=== PATIENT | female | born 1975 | race American Indian/Alaskan Native ===

== ENCOUNTER 2017-11-22 20:50 | Emergency (ER) | payer MEDICAID ==
[2017-11-22 21:28] VITALS: BP 103/63
--- NOTE | 2017-11-22 23:47 | XRay Report ---
FINAL REPORT EXAM: XR SHOULDER 2+V RT HISTORY: shoulder injury TECHNIQUE: Three views right shoulder PRIORS: None. FINDINGS: No fractures are identified. No dislocation seen. The acromioclavicular joint is intact. Adjacent bony and soft tissue structures are unremarkable. IMPRESSION: Negative shoulder series
[2017-11-23] MEDS ORDERED: TORADOL IM ONE (04:11)
--- NOTE | 2017-11-23 04:22 | Emergency Department Report ---
ED Upper Extremity Inj HPI - General Chief Complaint: Extremity Injury, Upper Stated Complaint: SHOULDER PAIN Time Seen by Provider: 11/23/17 03:21 Source: patient Mode of arrival: Ambulatory Limitations: No Limitations - History of Present Illness Initial Comments: This is a 41-year-old female nontoxic, well nourished in appearance, no acute signs of distress presents to the ED with c/o of right shoulder pain 1 month. Patient states pain has been increasing worse and worse. Patient states she is currently working at [employer] and has been picking up heavy boxes. She denies any trauma to the region. Denies any numbness, tingling, fever, chills, nausea, vomiting, joint swelling, joint redness, chest pain, shortness of breath , headache, stiff neck, back pain. Patient denies any drug allergies or past medical history. Patient states she had a hysterectomy. MD Complaint: Injury to:: right, shoulder -: month(s) (1) Other Extremity Injury: Shoulder: Right Other Injuries: none Place: work Severity scale (0 -10): 8 Improves With: none Worsens With: none Associated Symptoms: denies other symptoms. denies: weakness, numbness, neck pain, suspects foreign body, nausea/vomiting - Related Data Home Medications Medication Instructions Recorded Confirmed Last Taken Acetaminophen [Tylenol] 500 mg PO PRN 02/23/14 02/23/14 02/23/14 Cyroheptadine 4 mg PO BID 02/24/14 02/24/14 01/27/16 Previous Rx's Medication Instructions Recorded Last Taken Type Acetaminophen/Codeine 1 tab PO Q6H PRN #15 tab 10/23/14 Unknown Rx [Acetaminophen-Codeine #3 TAB] Diclofenac [Brandon Wilcox] 75 mg PO TID #21 tablet 10/23/14 01/27/16 Rx Acetaminophen/Codeine [Tylenol #3] 1 tab PO Q6H PRN #20 tab 01/29/16 Unknown Rx Cyclobenzaprine HCl [Flexeril 5 MG 5 mg PO TID #21 tab 01/29/16 Unknown Rx TAB] Ibuprofen [Motrin 800 MG tab] 1 tab PO Q8HR PRN #30 tablet 01/29/16 Unknown Rx ALBUTEROL Inhaler [ProAir HFA 1 puff IH Q4HR PRN #1 inha 11/09/16 Unknown Rx Inhaler] Diphenhydramine HCl [Benadryl 25 mg PO Q6HR #10 tablet 11/09/16 Unknown Rx Allergy TAB] Prednisone [predniSONE 10 mg 10 mg PO .TAPER #1 tab.ds.pk 11/09/16 Unknown Rx (6-Day Pack, 21 Tabs)] Ranitidine HCl [Zantac 150 MG TAB] 150 mg PO BID #10 tablet 11/09/16 Unknown Rx Cyclobenzaprine [Flexeril] 10 mg PO QHS PRN #7 tablet 11/23/17 Unknown Rx Ibuprofen [Motrin] 600 mg PO Q8H PRN #30 tablet 11/23/17 Unknown Rx Allergies Allergy/AdvReac Type Severity Reaction Status Date / Time No Known Allergies Allergy Verified 10/23/14 16:33 ED Review of Systems ROS: Stated complaint: SHOULDER PAIN Other details as noted in HPI Constitutional: denies: chills, fever Eyes: denies: eye pain, eye discharge, vision change ENT: denies: ear pain, throat pain Respiratory: denies: cough, shortness of breath, wheezing Cardiovascular: denies: chest pain, palpitations Endocrine: no symptoms reported Gastrointestinal: denies: abdominal pain, nausea, diarrhea Genitourinary: denies: urgency, dysuria, discharge Musculoskeletal: arthralgia. denies: back pain, joint swelling Skin: denies: rash, lesions Neurological: denies: headache, weakness, paresthesias Psychiatric: denies: anxiety, depression Hematological/Lymphatic: denies: easy bleeding, easy bruising ED Past Medical Hx - Past Medical History Hx Headaches / Migraines: Yes (1994) Additional medical history: cartilage damage to right knee, ligament damage to right ankle. - Surgical History Additional Surgical History: Hysterectomy, x 2. Jaw surgery. Lumps removed from chest twice. - Social History Smoking Status: Never Smoker Substance Use Type: None - Medications Home Medications: Home Medications Medication Instructions Recorded Confirmed Last Taken Type Acetaminophen [Tylenol] 500 mg PO PRN 02/23/14 02/23/14 02/23/14 History Cyroheptadine 4 mg PO BID 02/24/14 02/24/14 01/27/16 History Acetaminophen/Codeine 1 tab PO Q6H PRN #15 tab 10/23/14 Unknown Rx [Acetaminophen-Codeine #3 TAB] Diclofenac Dr [Voltaren Dr] 75 mg PO TID #21 tablet 10/23/14 01/27/16 Rx Acetaminophen/Codeine [Tylenol #3] 1 tab PO Q6H PRN #20 tab 01/29/16 Unknown Rx Cyclobenzaprine HCl [Flexeril 5 MG 5 mg PO TID #21 tab 01/29/16 Unknown Rx TAB] Ibuprofen [Motrin 800 MG tab] 1 tab PO Q8HR PRN #30 tablet 01/29/16 Unknown Rx ALBUTEROL Inhaler [ProAir HFA 1 puff IH Q4HR PRN #1 inha 11/09/16 Unknown Rx Inhaler] Diphenhydramine HCl [Benadryl 25 mg PO Q6HR #10 tablet 11/09/16 Unknown Rx Allergy TAB] Prednisone [predniSONE 10 mg 10 mg PO .TAPER #1 tab.ds.pk 11/09/16 Unknown Rx (6-Day Pack, 21 Tabs)] Ranitidine HCl [Zantac 150 MG TAB] 150 mg PO BID #10 tablet 11/09/16 Unknown Rx Cyclobenzaprine [Flexeril] 10 mg PO QHS PRN #7 tablet 11/23/17 Unknown Rx Ibuprofen [Motrin] 600 mg PO Q8H PRN #30 tablet 11/23/17 Unknown Rx ED Physical Exam - General Limitations: No Limitations General appearance: alert, in no apparent distress - Head Head exam: Present: atraumatic, normocephalic, normal inspection - Eye Eye exam: Present: normal appearance, PERRL, EOMI. Absent: scleral icterus, conjunctival injection, nystagmus, periorbital swelling, periorbital tenderness Pupils: Present: normal accommodation - ENT ENT exam: Present: normal exam, normal orophraynx, mucous membranes moist, TM's normal bilaterally, normal external ear exam - Neck Neck exam: Present: normal inspection, full ROM. Absent: tenderness, meningismus, lymphadenopathy, thyromegaly - Respiratory Respiratory exam: Present: normal lung sounds bilaterally. Absent: respiratory distress, wheezes, rales, rhonchi, stridor, chest wall tenderness, decreased breath sounds, prolonged expiratory - Cardiovascular Cardiovascular Exam: Present: regular rate, normal rhythm, normal heart sounds. Absent: irregular rhythm, systolic murmur, diastolic murmur, rubs, gallop - GI/Abdominal GI/Abdominal exam: Present: soft, normal bowel sounds. Absent: distended, tenderness, guarding, rebound, rigid, diminished bowel sounds - Rectal Rectal exam: Present: deferred - Extremities Exam Extremities exam: Present: normal inspection, full ROM, tenderness, normal capillary refill. Absent: pedal edema, joint swelling, calf tenderness - Expanded Upper Extremity Exam Right General: Present: normal inspection Shoulder Exam: Present: normal inspection, full ROM, tenderness (deltoid muscle region). Absent: swelling, abrasion, laceration, ecchymosis, deformity, crepidus, dislocation, erythema, tenderness over AC joint Upper Arm exam: Present: normal inspection, full ROM Elbow exam: Present: normal inspection, full ROM Forearm Wrist exam: Present: normal inspection, full ROM Hand Wrist exam: Present: normal inspection, full ROM Neuro motor exam: Present: wrist extension intact, thumb opposition intact, thumb IP flexion intact, thumb adduction intact, fingers 2-5 abduction intact Neurosensory exam: Present: 2-point discrimination, radial nerve intact, ulnar nerve intact, median nerve intact Vascular: Present: vascular compromise, normal capillary refill, radial pulse, brachial pulse, ulnar pulse - Back Exam Back exam: Present: normal inspection, full ROM, paraspinal tenderness (right cervical region). Absent: tenderness, CVA tenderness (R), CVA tenderness (L), muscle spasm, vertebral tenderness, rash noted - Neurological Exam Neurological exam: Present: alert, oriented X3, CN II-XII intact, normal gait, reflexes normal - Psychiatric Psychiatric exam: Present: normal affect, normal mood - Skin Skin exam: Present: warm, dry, intact, normal color. Absent: rash - Other Other exam information: Negative drop arm test ED Course Vital Signs 11/22/17 21:24 Temperature 98.3 F Pulse Rate 69 Respiratory 16 Rate Blood Pressure 103/63 O2 Sat by Pulse 98 Oximetry - Reevaluation(s) Reevaluation #1: 11/23/17 04:17 Patient is speaking in full sentences with no signs of distress noted. ED Medical Decision Making - Medical Decision Making This is a 41-year-old female that presents with right shoulder pain. Patient is stable and was examined by me. X-ray has been obtained and dictated by radiologist with normal exam. Patient is notified of xray results with no questions noted. Patient received Toradol 30 mg IM in the ED which patient that his symptoms are improving and are subsiding. Patient is discharged with Flexeril and Motrin and was instructed not to operate any machinery while taking Flexeril due to drowsiness. Patient received a shoulder immobilizer. Patient was instructed Follow-up with a primary care doctor/orthopedic doctor in 3-5 days or if symptoms worsen and continue return to emergency room as soon as possible. At time time of discharge, the patient does not seem toxic or ill in appearance. No acute signs of distress noted. Patient agrees to discharge treatment plan of care. No further questions noted by the patient. Critical care attestation.: If time is entered above; I have spent that time in minutes in the direct care of this critically ill patient, excluding procedure time. ED Disposition Clinical Impression: Right shoulder strain Qualifiers: Encounter type: initial encounter Qualified Code(s): S46.911A - Strain of unspecified muscle, fascia and tendon at shoulder and upper arm level, right arm , initial encounter Disposition: TO HOME OR SELFCARE Is pt being admited?: No Does the pt Need Aspirin: No Condition: Stable Instructions: Shoulder Sprain (ED), RICE Therapy (ED), Ibuprofen (By mouth) Additional Instructions: Follow-up with a primary care doctor/orthopedic doctor in 3-5 days or if symptoms worsen and continue return to emergency room as soon as possible. Take ibuprofen and Flexeril as prescribed. Do not operate heavy machinery while taking Flexeril due to sedation Prescriptions: Cyclobenzaprine [Flexeril] 10 mg PO QHS PRN #7 tablet PRN Reason: Muscle Spasm Ibuprofen [Motrin] 600 mg PO Q8H PRN #30 tablet PRN Reason: Pain Referrals: PRIMARY CARE, [Primary Care Provider] - 3-5 Days NICOLA SINGH MD [Staff Physician] - 3-5 Days MORIS HENDRIX MD [Staff Physician] - 3-5 Days [facility] [Outside] - 3-5 Days [facility] [place] [Outside] - 3-5 Days Forms: Work/School Release Form(ED)
== END 2017-11-23 04:59 | disposition home or self-care (01) ==
LOC: ED 20:50
DX: S46.811A Strain of other muscles, fascia and tendons at shoulder and upper arm level, right arm, initial encounter (principal); G43.909 Migraine, unspecified, not intractable, without status migrainosus; X58.XXXA Exposure to other specified factors, initial encounter; Y93.89 Activity, other specified; Y92.89 Other specified places as the place of occurrence of the external cause; Y99.8 Other external cause status
CPT/HCPCS: 29105; 73030; 96372; 99283; J1885